=== PATIENT | female | born 1950 | race Caucasian/White ===

== ENCOUNTER 2018-08-13 16:56 | Emergency (ER) | payer BC ==
[2018-08-13] MEDS: IBUPROFEN 200 MG TAB PO (18:25)
[2018-08-13] MEDS: FLUORESCEIN STRIP LEFT EYE (18:51)
== END 2018-08-13 22:45 | disposition home or self-care (01) ==
LOC: FTE 16:56
DX: I10 Essential (primary) hypertension (principal); R51 Headache; W50.0XXA Accidental hit or strike by another person, initial encounter; Y92.9 Unspecified place or not applicable
CPT/HCPCS: 70450; 70480; 76536; 99284-25

== ENCOUNTER 2018-11-12 16:37 | Emergency (ER) | payer BC, OTHER ==
[2018-11-12 18:09] LABS: ADD MAN DIFF? NO
[2018-11-12 18:10] LABS: WHITE BLOOD COUNT 8.7 10^3/ul (4.8-10.8)
[2018-11-12 18:10] LABS: BASOPHIL # 0.1 10^3/ul (0.0-0.1); BASOPHILS % 0.8 % (0.0-2.0); EOSINOPHILS # 0.1 10^3/ul (0.0-0.5); HEMATOCRIT 35.7 % (37.0-47.0); HEMOGLOBIN 11.8 g/dl (12.0-16.0); LYMPHOCYTES # 2.7 10^3/ul (0.8-2.9); LYMPHOCYTES % 31.3 % (15.0-51.0); MEAN CORPUSCULAR HEMOGLOBIN 28.8 pg (29.0-33.0); MEAN CORPUSCULAR HGB CONC 33.1 g/dl (32.0-37.0); MEAN CORPUSCULAR VOLUME 87.1 fl (82.0-101.0); MEAN PLATELET VOLUME 11.2 fl (7.4-10.4); MONOCYTE # 0.6 10^3/ul (0.3-0.9); MONOCYTES % 7.2 % (0.0-11.0); NEUTROPHIL # 5.1 10^3/ul (1.6-7.5); NEUTROPHILS % 59.2 % (39.0-77.0); PLATELET COUNT 259 10^3/UL (140-415); RED CELL DISTRIBUTION WIDTH 13.2 % (11.5-14.5)
[2018-11-12 18:18] LABS: ANION GAP 11 (5-13); BLOOD UREA NITROGEN 21 mg/dl (7-20); CALCIUM 9.7 mg/dl (8.4-10.2); CARBON DIOXIDE 26 mmol/L (21-31); CHLORIDE 100 mmol/L (97-110); CREATININE 1.02 mg/dl (0.44-1.00); Estimated GFR 54 mL/min (>60); GLUCOSE 134 mg/dl (70-220); POTASSIUM 3.9 mmol/L (3.5-5.1); SODIUM 137 mmol/L (135-144)
[2018-11-12 18:29] LABS: TROPONIN-I < 0.012 ng/ml (0.000-0.120)
== END 2018-11-12 19:40 | disposition home or self-care (01) ==
LOC: E/R 16:37
DX: I10 Essential (primary) hypertension (principal)
CPT/HCPCS: 36415; 71045; 80048; 84484; 85025; 93005; 99285-25